=== PATIENT | female | born 1935 | race Caucasian/White ===

== ENCOUNTER → 2017-01-10 | Outpatient (CLI) | payer MEDICARE ==
[~2017-01-10] MED LIST: ALDACTONE 50MG50 MG PO; ALLOPURINOL100 M1 PO; ASPIRIN81 MG PO; BACLOFEN10 MG PO; BENAZEPRIL HYDR20 MG OR; COLCRYS0.6 MG PO; DOCUSATE SODIU100 MG PO; DOCUSATE100 MG PO; DONEPEZIL 10MG10 MG PO; FERROUS SULFAT325 M2 PO; FEXOFENADINE60 MG PO; FISH OIL1000 MG PO; FUROSEMIDE 40MG40 MG PO; FUROSEMIDE40 MG PO; GABAPENTIN800 MG PO; HYDROCODONE-APA1 TA1 PO; LEVOTHYROXINE0.05 MG PO; LOVASTATIN20 MG PO; METOCLOPRAMIDE H5 M2 PO; MULTI VITAMINS1 TAB PO; PRILOSEC20 M1 PO; Prilosec20 MG PO; SENOKOT TABLET1 EACH PO; VESICARE10 MG PO
--- NOTE | 2017-01-10 13:09 | RADIOLOGY REPORT PS360 ---
CHEST(2 VIEWS-NOT PORTABLE) HISTORY: CHEST PAIN,LEFT THORACIC BACK PAIN, ORDERING PHYSICIAN: Eligio Mcconnell MD PATIENT AGE: 81 years COMPARISON: 12/13/2009 FINDINGS: There are low lung volumes with cardiomegaly without failure. There is evidence of old granulomatous disease. Atelectatic changes are present in the lung bases. No lobar consolidation or collapse. There is kyphosis of the thoracic lumbar junction which is accentuated when compared to the previous exam. The lower thoracic and upper lumbar spine are not well delineated on this study. IMPRESSION: 1. Hypoventilation with bibasilar atelectasis and mild cardiomegaly. 2. Slight worsening thoracolumbar kyphosis with poor visualization of the lower thoracic and upper lumbar spine.
--- NOTE | 2017-01-10 13:10 | RADIOLOGY REPORT PS360 ---
THORACIC SPINE AP LAT-2VIEW CLINICAL INDICATION: CHEST PAIN,LEFT THORACIC BACK PAIN, ORDERING PHYSICIAN: Eligio Mcconnell MD PATIENT AGE: 81 years COMPARISON: None FINDINGS: There is kyphosis of the thoracic lumbar junction with poor visualization of the thoracolumbar spine. If fracture is suspected then, CT may be of further value. There is mild upper lumbar scoliosis convex left. Mild wedging T7 and T8 which does not appear significantly changed compared to prior lateral chest radiograph. There is multilevel degenerative disc disease with osteosclerosis and endplate osteophytes. IMPRESSION: Exaggerated thoracolumbar kyphosis with incomplete visualization of the lower thoracic and upper lumbar spine with multilevel degenerative disc disease
--- NOTE | 2017-01-10 13:12 | RADIOLOGY REPORT PS360 ---
[id number] VIEW HISTORY: CHEST PAIN,LEFT THORACIC BACK PAIN, ORDERING PHYSICIAN: Eligio Mcconnell MD PATIENT AGE: 81 years COMPARISON: None FINDINGS: 2 views of the left ribs show no obvious fracture or obstructive process. IMPRESSION: Negative left ribs.
== END ==
LOC: RAD 11:02
DX: R07.1 Chest pain on breathing (principal); M54.6 Pain in thoracic spine